=== PATIENT | female | born 1990 | race Two or more races ===

== ENCOUNTER 2020-02-19 20:14 | Inpatient (IN) | payer MEDICAID ==
[~2020-02-19] VITALS: Ht 368.3 cm; Wt 69.9 kg
[2020-02-19] MEDS ORDERED: LACTATED RINGERS 1,000 ML IV SCH (22:22)
[2020-02-19] MEDS ORDERED: DEXT 5%/LR + PITOCIN 20UNITS/L 1,000 ML IV SCH (22:22)
[2020-02-19] MEDS ORDERED: CARBOPROST TROMETHAMINE 250 MCG/ML AMPUL IM PRN (22:30)
[2020-02-19] MEDS ORDERED: LIDOCAINE HCL 1% 20ML VIAL (Pyxis) INJ INFIL SCH (22:30)
[2020-02-19] MEDS ORDERED: METHYLERGONOVINE MALEATE 0.2 MG/ML IM PRN (22:30)
[2020-02-19] MEDS ORDERED: MISOPROSTOL 100MCG TABLET VG PRN (22:30)
[2020-02-19] MEDS ORDERED: MISOPROSTOL 200MCG TABLET VG SCH (22:30)
[2020-02-19] MEDS ORDERED: BUTORPHANOL TARTRATE 2 MG/ML VIAL IV PRN (22:30)
[2020-02-19] MEDS ORDERED: NALOXONE HCL 0.4 MG/ML 1ML VIAL IM PRN (22:30)
[2020-02-19] MEDS ORDERED: PENICILLIN G POTASSIUM 5 MMU in DEXT 5% WATER 100 ML IV SCH (23:00)
[2020-02-19 23:09] LABS: CLARITY URINE CLEAR (CLEAR); COLOR URINE YELLOW (YELLOW); KETONES URINE NEGATIVE (NEGATIVE); LEUKOCYTE ESTERASE URINE TRACE (NEGATIVE); NITRITE URINE NEGATIVE (NEGATIVE); OCCULT BLOOD URINE 1+ (NEGATIVE); PH URINE 6.5 (4.5-8.0); PROTEIN URINE NEGATIVE (NEGATIVE); SPECIFIC GRAVITY URINE 1.007 (1.005-1.030); UROBILINOGEN URINE 0.2 E.U./dL (0.2-1.0)
[2020-02-19 23:18] LABS: BASOPHILS % 0.4 % (0.0-2.0); EOSINOPHILS % 0.3 % (0.0-5.0); HEMATOCRIT. 35.2 % (36.0-48.0); HEMOGLOBIN. 11.9 g/dL (12.0-16.0); LYMPHOCYTES % 26.2 % (20.0-50.0); MEAN CORPUSCULAR HEMOGLOBIN 27.8 pg (28.0-32.0); MEAN CORPUSCULAR VOLUME 82.1 fL (81.0-99.0); MEAN PLATELET VOLUME 11.3 fl (7.4-10.4); MONOCYTES % 4.1 % (2.0-8.0); PLATELET 235 x1000/uL (130-400); RED BLOOD CELL COUNT 4.28 mill/uL (4.2-5.4); RED CELL DISTRIBUTION WIDTH 13.6 % (11.6-14.6)
[2020-02-19 23:25] LABS: *AMPHETAMINES SCREEN URINE NEGATIVE (NEGATIVE); *BARBITURATES SCREEN URINE NEGATIVE (NEGATIVE); *BENZODIAZEPINES SCREEN URINE NEGATIVE (NEGATIVE); *COCAINE SCREEN URINE NEGATIVE (NEGATIVE); METHADONE URINE SCREEN NEGATIVE (NEGATIVE)
[2020-02-19 23:26] LABS: CANNABINOID URINE SCREEN NEGATIVE (NEGATIVE); OPIATES URINE SCREEN NEGATIVE (NEGATIVE); PHENCYCLIDINE URINE SCREEN NEGATIVE (NEGATIVE)
[2020-02-19 23:56] LABS: HEPATITIS B SURFACE ANTIGEN NEGATIVE
[2020-02-20 00:12] LABS: INR 0.9; PARTIAL THROMBOPLASTIN TIME 26.4 sec (23.4-31.0)
[2020-02-20] MEDS ORDERED: PENICILLIN G POTASSIUM 2.5 MMU in DEXTROSE 5% WATER 50 ML IV SCH (03:00)
[2020-02-20] MEDS ORDERED: ROPIVACAINE HCL/PF EPIDURAL 200 ML EPI SCH (03:15)
[2020-02-20] MEDS ORDERED: DEXT 5%/LR + PITOCIN 20UNITS/L 1,000 ML IV SCH (03:52)
[2020-02-20] MEDS ORDERED: HEMORRHOIDAL SUPP PR PRN (04:00)
[2020-02-20] MEDS ORDERED: BISACODYL 10MG SUPP PR PRN (04:00)
[2020-02-20] MEDS ORDERED: LANOLIN OINT 7GM TUBE TOP PRN (04:00)
[2020-02-20] MEDS ORDERED: ACETAMINOPHEN WITH CODEINE 300/30MG TABLET PO PRN (04:00)
[2020-02-20] MEDS ORDERED: GLYCERIN/WITCH HAZEL LEAF MEDICATED PAD TOP PRN (04:00)
[2020-02-20] MEDS ORDERED: BENZOCAINE/LANOLIN/ALOE VERA SPRAY TOP PRN (04:00)
[2020-02-20] MEDS ORDERED: IBUPROFEN 400MG TABLET PO PRN (04:00)
[2020-02-20 05:30] VITALS: BP 102/50
[2020-02-20 07:57] VITALS: BP 100/51
[2020-02-20] MEDS: SIMETHICONE 80MG TABLET CHEW PO SCH ×4 (08:45→21:38)
[2020-02-20] MEDS: MAGNESIUM/ALUMINUM HYDROXIDE/SIMETHICONE 30ML UDC PO SCH ×4 (08:45→21:39)
[2020-02-20] MEDS: FERROUS SULFATE 325MG TABLET PO SCH ×2 (08:45→13:11)
[2020-02-20] MEDS: IBUPROFEN 800MG TABLET PO PRN (08:46)
[2020-02-20] MEDS: PRENATAL VIT/FE FUMARATE/FA TABLET PO SCH (08:46)
[2020-02-20 16:20] VITALS: BP 92/51
[2020-02-20] MEDS ORDERED: DOCUSATE SODIUM 100MG CAPSULE PO SCH (21:00)
[2020-02-20 22:00] VITALS: BP 98/50
[2020-02-21 07:29] LABS: BASOPHILS % 0.2 % (0.0-2.0); EOSINOPHILS % 0.7 % (0.0-5.0); HEMATOCRIT. 32.2 % (36.0-48.0); HEMOGLOBIN. 10.9 g/dL (12.0-16.0); LYMPHOCYTES % 31.8 % (20.0-50.0); MEAN CORPUSCULAR HEMOGLOBIN 27.9 pg (28.0-32.0); MEAN CORPUSCULAR VOLUME 82.2 fL (81.0-99.0); MEAN PLATELET VOLUME 10.5 fl (7.4-10.4); MONOCYTES % 4.4 % (2.0-8.0); NEUTROPHILS % 62.9 % (40.0-76.0); PLATELET 185 x1000/uL (130-400); RED BLOOD CELL COUNT 3.91 mill/uL (4.2-5.4); RED CELL DISTRIBUTION WIDTH 13.4 % (11.6-14.6)
[2020-02-21 08:30] VITALS: BP 112/64
[2020-02-21] MEDS: IBUPROFEN 800MG TABLET PO PRN (12:14)
[2020-02-21] MEDS: FERROUS SULFATE 325MG TABLET PO SCH (12:14)
[2020-02-21] MEDS: MAGNESIUM/ALUMINUM HYDROXIDE/SIMETHICONE 30ML UDC PO SCH (12:14)
[2020-02-21] MEDS: PRENATAL VIT/FE FUMARATE/FA TABLET PO SCH (12:14)
[2020-02-21] MEDS: SIMETHICONE 80MG TABLET CHEW PO SCH (12:15)
[2020-02-21 18:30] VITALS: BP 124/67
== END 2020-02-21 18:58 | disposition home or self-care (01) | DRG 560 ==
LOC: 8 EST LDRP 20:14 → OBSVTOIN 20:14 → 8EST 02-20 05:00
PROVIDERS: ADMIT Obstetrics & Gynecology; ATTEND Obstetrics & Gynecology
PROC: 10E0XZZ Delivery of Products of Conception, External Approach (ICD-10-PCS; principal; 2020-02-20)
DX: O99.02 Anemia complicating childbirth (principal); D64.9 Anemia, unspecified; Z37.0 Single live birth; O42.913 Preterm premature rupture of membranes, unspecified as to length of time between rupture and onset of labor, third trimester; Z3A.37 37 weeks gestation of pregnancy
CPT/HCPCS: 36415; 76805; 76818; 80305; 81003; 85025; 86592; 86703; 86762; 86850; 86900; 87340; 99281; G0378; J2540; J2590; J2795; J7060